=== PATIENT | female | born 1960 | race Caucasian/White ===

== ENCOUNTER 2018-05-11 16:03 | Emergency (ER) | payer OTHER, SELFPAY ==
[2018-05-11 16:04] VITALS: BP 148/85; PULSE 84; RESP 18; TEMP 36.3; O2SAT 98; BMI 28.9
--- NOTE | 2018-05-11 17:08 | CT_ITS ---
STUDY: CT BRAIN WITHOUT CONTRAST REASON FOR EXAM: Female, 57 years old. Dizziness and headache x2 days RADIATION DOSAGE (If Supplied By Facility): CTDIvol = ( 44.99 ) mGy, DLP = ( 745.49 ) mGycm TECHNIQUE: Transaxial CT imaging of the brain was performed without administration of intravenous contrast material. Individualized dose optimization techniques were used for this CT. COMPARISON: None. FINDINGS: Normal soft tissue structures. Normal calvarium. Normal size ventricles and extra-axial spaces for the patient's age. Normal white matter tracts of the cerebral hemispheres. Normal basal ganglia and thalami. Normal brainstem. Normal cerebellum. There is no intracranial hemorrhage. There are no findings of an acute ischemic infarction. There is mucosal thickening of the left frontal sinus, multiple ethmoid air cells bilaterally, and right sphenoid sinus. CT/Brain/Head without Contrast IMPRESSION: Chronic pansinusitis. There is no intracranial hemorrhage or infarct. Electronically Signed: Angel Cho MD at 18:14 EST , Service support ,
--- NOTE | 2018-05-11 17:11 | ED.DCSUM_ITS ---
- ER Visit Summary Date of Service: 05/11/18 Chief Complaint: Room spinning dizziness History of Present Illness: The patient is a 57 F past medical history of hypertension. Patient states that when she woke this morning she had room spinning dizziness. Mild headache. No trouble moving arms or legs. No visual change. No trouble with her speech. No redness before. Is worse with head movement. She denies any vomiting, diarrhea, melena or fever. No head injuries. Physical Examination: Well-appearing middle-age female. Vital signs stable afebrile. No acute distress. H EENT exam pupils round reactive light. Extra motions are intact. No facial droop. Normal speech. Moist weeks membranes. Left TM canal normal. Right canal full of wax. TM not seen. Neck nontender no lymphadenopathy. Lungs clear to auscultation bilaterally. Heart regular rate and rhythm no murmur. Abdomen soft nontender normal bowel sounds no peritoneal signs. Patient moving all 4 extremities. Neurovascular intact. Equal symmetrical senior interactive developer strength. Dorsi plantar flexion intact. Fingertip to nose heel to park within normal limits. Neurologic exam normal. NIH is 0. No facial droop. Normal speech. Normal motor strength and sensation both upper and lower extremities. Test Results: CT brain shows no acute abnormality. Chronic pansinusitis. No bleed. No stroke. Read by the radiologist reviewed by me. Emergency Department Course and Treatment: Patient's history and exam are consistent with vertigo. P.o. Valium. Also irrigate the right ear that is full of wax. We were able to evacuate some of the wax in the right ear both by irrigation and with a cerumen spoon. On repeat exam patient is improved but still has some dizziness. But no other neurological findings. Treatment Plan: Valium and/or Antivert for dizziness. Debrox eardrops right earwax. Disposition: Discharge Impression: Acute vertigo Acute right ear canal wax impaction This note was generated with [employer] dictation software. It may contain incorrect words, spelling, and punctuation that were not noted in review of the chart prior to signing ED Disposition - Plan for ED Patient: Disposition: Home or Assisted Living Chief Complaint: Dizziness Instructions: ED BPV Vertigo, ED Cerumen Impaction, Home Care Prescriptions: Diazepam [Valium] 5 mg PO Q6H PRN PRN #14 tab PRN Reason: Vertigo Meclizine HCl [Antivert] 25 mg PO 4X/DAY PRN PRN #14 tab PRN Reason: Vertigo Referrals: Lawrence Golden III, MD [Primary Care Provider] - 3-5 Days if not improving Additional Instructions: Debrox or Cerumenex drops to right ear for the wax. Valium and/or Antivert for your dizziness which is vertigo. Call follow-up with your doctor if not improving in 3-5 days.
[2018-05-11] MEDS: diazePAM 5 MG Tablet PO (17:18)
[2018-05-11] MEDS: Carbamide Peroxide 15 ML Bottle 5 DRP OTIC (17:22)
--- NOTE | 2018-05-11 18:54 | ED.DEP ---
ED Disposition - Plan for ED Patient: Disposition: Home or Assisted Living Chief Complaint: Dizziness Instructions: ED BPV Vertigo, ED Cerumen Impaction, Home Care Prescriptions: Diazepam [Valium] 5 mg PO Q6H PRN PRN #14 tab PRN Reason: Vertigo Meclizine HCl [Antivert] 25 mg PO 4X/DAY PRN PRN #14 tab PRN Reason: Vertigo Referrals: Lawrence Golden III, MD [Primary Care Provider] - 3-5 Days if not improving Additional Instructions: Debrox or Cerumenex drops to right ear for the wax. Valium and/or Antivert for your dizziness which is vertigo. Call follow-up with your doctor if not improving in 3-5 days.
[2018-05-11 19:05] VITALS: BP 119/65; PULSE 67; RESP 18; O2SAT 98
== END 2018-05-11 19:06 | disposition home or self-care (01) ==
PROVIDERS: Emergency Provider Emergency Medicine; Family Provider Family Medicine; PCP Family Medicine
DX: R42 Dizziness and giddiness (principal); H61.21 Impacted cerumen, right ear; I10 Essential (primary) hypertension; Z72.0 Tobacco use
CPT/HCPCS: 70450; 99283

== ENCOUNTER 2021-06-24 16:00 | Emergency (ER) | payer OTHER, SELFPAY ==
[2021-06-24 16:02] VITALS: BP 156/88; PULSE 74; RESP 18; TEMP 36.2; O2SAT 98; BMI 28.9
--- NOTE | 2021-06-24 16:17 | EDS_ITS ---
HPI <GIULIANO Underwood - Last Filed: 06/24/21 17:48> HPI - Female History of Present Illness Chief Complaint: Complaint Narrative Narrative: 61 year old female presents with 3-day history of urinary frequency and pain in her suprapubic region and low back. She states she has had a cystocele and rectocele for years that has been progressively getting worse. She has not seen a media supervisor in a few years. She took Tylenol today with resolution of her pain but still has urinary frequency. She denies fever, chills, nausea, vomiting, hematuria or vaginal discharge. [facility] <GIULIANO Underwood - Last Filed: 06/24/21 17:48> [facility] Medical History Smoker Home Medications NK 06/24/21 [History Last Taken Unknown] cephalexin 500 mg PO Q12 #14 capsule 06/24/21 [Rx Last Taken Unknown] Allergy/AdvReac Type Severity Reaction Status Date / Time No Known Allergies Allergy Verified 06/24/21 16:05 Social History Smoking Status: Current every day smoker tobacco type: cigarettes ROS <GIULIANO Underwood - Last Filed: 06/24/21 17:48> ROS ED ROS Narrative Constitutional: Negative for fever, chills, malaise. Eyes: Negative for visual change. ENT: Negative for sore throat, ear pain, rhinorrhea. CVS: Negative for palpitations, chest pain, syncope. Respiratory: Negative for shortness of breath, cough, orthopnea. GI: Negative for abdominal pain, nausea, vomiting, diarrhea, constipation, melena, hematochezia. : Positive for dysuria, frequency. Negative for hematuria. Neuro: Negative for headache, motor/sensory dysfunction. Skin: Negative for rash, abscess, or wound. Heme: Negative for easy bruising, bleeding, lymphadenopathy. EXAM <GIULIANO Underwood Last Filed: 06/24/21 17:48> Physical Exam Narrative Exam Narrative: CONST: Patient sitting in no acute distress. EYES: Normal inspection. NECK: Normal inspection. RESP: No respiratory distress, CTAB. CVS: Regular rate and rhythm, no murmur, no gallop. ABD: Soft and nontender, no guarding or rebound, nondistended. Back: Normal inspection, no CVA tenderness. SKIN: Color normal, no rash, warm, dry, intact. EXTREMITIES: Normal appearance, no pedal edema. NEURO: Oriented x4. PSYCH: Normal affect. Const Vital Signs: 06/24/21 16:02 Temperature 97.2 F L Temperature Source Temporal Pulse Rate 74 Respiratory Rate 18 Blood Pressure 156/88 H Blood Pressure Mean 110 Pulse Ox 98 Oxygen Delivery Method Room Air <Dr. Shorty Klein DO - Last Filed: 06/25/21 20:00> Physical Exam Const Vital Signs: 06/24/21 16:02 Temperature 97.2 F L Temperature Source Temporal Pulse Rate 74 Respiratory Rate 18 Blood Pressure 156/88 H Blood Pressure Mean 110 Pulse Ox 98 Oxygen Delivery Method Room Air MDM <GIULIANO Underwood - Last Filed: 06/24/21 17:48> [facility] Narrative Medical decision making narrative: Patient presents with urinary frequency as well as suprapubic and low back pain. She appears well nontoxic. Vital signs within normal limits. Her abdomen is soft and nontender with no distention. No CVA tenderness. UA is consistent with a UTI. She will be treated with Keflex BID and should follow-up with her PCP. At this time she has no clinical signs of sepsis no flank pain and there is no indication for further labs or imaging. Patient was counseled on signs that would warrant return and was discharged in stable condition. Diagnosis 1. UTI Lab Data Labs: Laboratory Results - last 24 hr 06/24/21 16:48 Urine Color SEE COMMENT BELOW Urine Clarity Sl. Cloudy Urine pH 6.5 Ur Specific [place] 1.010 Urine Protein Negative Urine Glucose (UA) Normal Urine Ketones 5 H Urine Occult Blood 25 H Urine Nitrite Positive H Urine Bilirubin 3 H Urine Urobilinogen 8 H Ur Leukocyte Esterase 25 H Urine RBC 0-5 SEEN Urine WBC 0-5 SEEN Ur Squamous Epith Cells 0-5 SEEN Urine Bacteria RARE Urine Mucus 0 SEEN <Dr. Shorty Klein, - Last Filed: 06/25/21 20:00> [facility] Narrative Medical decision making narrative: individually examined the patient. Patient seen with the PA. I agree with her H & P. Patient presented with symptoms of UTI. She states she does not have recurrent UTI symptoms. She complaining of suprapubic and lower back pain. She states that Tylenol nearly improved her pain in total prior to arrival. Patient has no CVA tenderness. Urinalysis obtained consistent with infection. She started on antibiotics with first dose in the ED. Patient was given return precautions. Lab Data Labs: Laboratory Results - last 24 hr 06/24/21 16:48 Urine Color SEE COMMENT BELOW Urine Clarity Sl. Cloudy Urine pH 6.5 Ur Specific [place] 1.010 Urine Protein Negative Urine Glucose (UA) Normal Urine Ketones 5 H Urine Occult Blood 25 H Urine Nitrite Positive H Urine Bilirubin 3 H Urine Urobilinogen 8 H Ur Leukocyte Esterase 25 H Urine RBC 0-5 SEEN Urine WBC 0-5 SEEN Ur Squamous Epith Cells 0-5 SEEN Urine Bacteria RARE Urine Mucus 0 SEEN Discharge Plan Triage Chief Complaint: Complaint ED Provider: Radha Sandoval Dx/Rx/DC Orders Clinical Impression: UTI (urinary tract infection) Instructions: ED CYSTITIS Female Adult Prescriptions: New cephalexin [cephalexin] 500 MG capsule 500 mg PO Q12 Qty: 14 RF: 0 No Action NK RF: 0 Primary Care Provider: Care Physician,No Primary Referrals: Maria Luisa Haywood, [NON-STAFF] - Lesly Johnson [NON-STAFF] - Care Physician,No Primary [Primary Care Provider] - Activity Restrictions/Additional Instructions: Today you were diagnosed with a UTI or urinary tract infection. I prescribed antibiotics (keflex). Please follow-up with the listed PCP and come back to the ER if you develop worsening symptoms such as fever, abdominal pain, back pain etc. Follow up with Dr. Johnson listed above. Disposition Disposition: Home, Self Care Discharge Date/Time: 06/24/21 17:59
[2021-06-24 16:54] LABS: Mucous, Urine 0 SEEN /hpf (<or=2+)
[2021-06-24 17:02] LABS: Glucose, Dipstick Normal (Normal); Ketone-Dipstick 5 mg/dl (Negative); Leukocyte Esterase-Dipstick 25 /ul (Negative); Nitrite-Dipstick Positive (Negative); Occult Blood-Urine 25 /ul (Negative); Protein-Dipstick Negative (Negative); Urine Clarity Sl. Cloudy (Clear); Urine Urobilinogen 8 mg/dl (Normal); Urine pH 6.5 (5.0 - 8.0)
[2021-06-24 17:04] LABS: Color, Urine SEE COMMENT BELOW (Yellow); Urine Bilirubin Dipstick 3 mg/dL (Negative)
[2021-06-24 17:11] LABS: Bacteria RARE /hpf (None Seen); Red Blood Cells-Urine 0-5 SEEN /hpf (0-5); Squamous Epithelial Cells - UA 0-5 SEEN /hpf (5-10); White Blood Cells 0-5 SEEN /hpf (0-5)
[2021-06-24] MEDS: Cephalexin 250 MG Capsule 500 MG PO (17:57)
[2021-06-24 17:59] VITALS: BP 142/76; PULSE 87; RESP 15; O2SAT 98
== END 2021-06-24 17:59 | disposition home or self-care (01) ==
PROVIDERS: Emergency Provider Physician Assistant; Visit Provider Physician Assistant
DX: N39.0 Urinary tract infection, site not specified (principal); F17.210 Nicotine dependence, cigarettes, uncomplicated
CPT/HCPCS: 81001; 99283